=== PATIENT | female | born 1970 | race African-American/Black ===

== ENCOUNTER 2021-06-28 21:39 | Emergency (ER) | payer OTHER ==
[2021-06-28 21:47] VITALS: BP 117/73; PULSE 74; TEMP 99.2; BMI 31.4
[2021-06-28 22:37] LABS: BASO % 0.6 % (0-2.0); EOS % 1.4 % (0-4.5); HEMATOCRIT 35.9 % (32.4-45.2); HEMOGLOBIN 12.4 GM/dL (10.7-15.3); MCH 32.6 pg (25.7-33.7); MCHC 34.4 g/dl (32.0-36.0); MEAN CELL VOLUME 94.7 fl (80-96); MEAN PLT VOLUME 7.6 fl (7.5-11.1); MONO % 8.9 % (3.8-10.2); NEUT % 33.1 % (42.8-82.8); PLATELET COUNT 281 10^3/uL (134-434); RDW 13.8 % (11.6-15.6); WHITE BLOOD COUNT 5.7 K/mm3 (4.0-10.0)
[2021-06-28 22:56] LABS: BLOOD UREA NITROGEN 9.8 mg/dL (7-18); CALCIUM 8.4 mg/dL (8.5-10.1)
[2021-06-28 22:57] LABS: ALBUMIN 3.4 g/dl (3.4-5.0); MAGNESIUM 2.1 mg/dL (1.8-2.4)
[2021-06-28 23:00] LABS: CREATININE 0.7 mg/dL (0.55-1.3); PHOSPHOROUS 4.6 mg/dL (2.5-4.9)
[2021-06-28 23:01] LABS: BILIRUBIN,TOTAL 0.3 mg/dL (0.2-1)
== END 2021-06-28 23:42 | disposition home or self-care (01) ==
LOC: JER 21:39
DX: M79.601 Pain in right arm (principal)
CPT/HCPCS: 36415; 73060-TC-RT-FY; 80053; 83735; 84100; 85025; 99284-25

== ENCOUNTER 2021-12-02 21:22 | Emergency (ER) | payer OTHER ==
[2021-12-02 21:49] VITALS: BP 113/86; PULSE 89; TEMP 100.3; BMI 29.7
[2021-12-02] MEDS ORDERED: ACETAMINOPHEN 500 MG TABLET (FP) PO ONE (22:40)
[2021-12-02] MEDS ORDERED: ACETAMINOPHEN 500 MG TABLET (FP) ONE ×2 (22:41→22:51)
[2021-12-04 11:07] LABS: SARS-CoV-2 NAA Detected (Not Detected)
== END 2021-12-03 08:58 | disposition home or self-care (01) ==
LOC: JER 21:22
DX: J02.9 Acute pharyngitis, unspecified (principal)
CPT/HCPCS: 87804; 99283-25; C9803; U0003; U0005

== ENCOUNTER 2021-12-16 15:07 | Emergency (ER) | payer OTHER ==
[2021-12-16 15:25] VITALS: BMI 32.9
[2021-12-16] MEDS ORDERED: ASPIRIN 81 MG CHEWABLE TABLETS PO ONE (15:47)
[2021-12-16] MEDS ORDERED: ASPIRIN 81 MG CHEWABLE TABLETS ONE (16:10)
[2021-12-16 16:49] LABS: BASO % 0.3 % (0-2.0); EOS % 0.9 % (0-4.5); HEMATOCRIT 42.7 % (32.4-45.2); HEMOGLOBIN 13.9 GM/dL (10.7-15.3); LYMPH % 35.7 % (8-40); MCH 31.6 pg (25.7-33.7); MCHC 32.6 g/dl (32.0-36.0); MEAN CELL VOLUME 96.8 fl (80-96); MEAN PLT VOLUME 8.1 fl (7.5-11.1); NEUT % 54.1 % (42.8-82.8); PLATELET COUNT 305 10^3/uL (134-434); RBC 4.41 M/mm3 (3.60-5.2); RDW 13.5 % (11.6-15.6); WHITE BLOOD COUNT 7.1 K/mm3 (4.0-10.0)
[2021-12-16 16:58] LABS: INR 1.11 (0.83-1.09); PROTHROMBIN TIME (PATIENT) 12.8 SEC (9.7-13.0)
[2021-12-16 17:01] LABS: ACTIVATED PTT 35.1 SECONDS (25.2-36.5)
[2021-12-16 17:12] LABS: CHLORIDE 104 mmol/L (98-107); SODIUM 138 mmol/L (136-145)
[2021-12-16 17:14] LABS: ANION GAP 7 MMOL/L (8-16); CALCIUM 9.1 mg/dL (8.5-10.1); CO2 28 mmol/L (21-32); GLUCOSE,RANDOM 82 mg/dL (74-106)
[2021-12-16 17:15] LABS: BLOOD UREA NITROGEN 10.9 mg/dL (7-18); MAGNESIUM 2.4 mg/dL (1.8-2.4)
[2021-12-16 17:18] LABS: CREATININE 0.8 mg/dL (0.55-1.3); SGOT/AST 24 U/L (15-37); SGPT/ALT 35 U/L (13-61)
[2021-12-16 17:19] LABS: BILIRUBIN,TOTAL 0.4 mg/dL (0.2-1); TOT PROT 7.9 g/dl (6.4-8.2)
[2021-12-16 17:20] LABS: ALK PHOS 65 U/L (45-117)
[2021-12-16 18:37] VITALS: BP 122/74; PULSE 82; TEMP 98.8
== END 2021-12-16 20:28 | disposition home or self-care (01) ==
LOC: JER 15:07
DX: R07.89 Other chest pain (principal)
CPT/HCPCS: 36415; 71046-TC-FY; 71275-TC; 80053; 82550; 83735; 84484; 85025; 85379; 85610; 85730; 93005; 93010; 99285-25; Q9967

== ENCOUNTER 2022-05-29 15:11 | Emergency (ER) | payer OTHER ==
[2022-05-29 15:22] VITALS: BP 104/70; PULSE 79; TEMP 97; BMI 33.0
[2022-05-29] MEDS ORDERED: LIDOCAINE 5% TOPICAL PATCH TP ONE (16:28)
[2022-05-29] MEDS ORDERED: LIDOCAINE 5% TOPICAL PATCH ONE (16:32)
[2022-05-29] MEDS ORDERED: KETOROLAC TROMETHAMINE 30 MG/1 ML VIAL IM ONE (16:33)
[2022-05-29] MEDS ORDERED: diazePAM 5 MG TABLET PO ONE (16:33)
[2022-05-29] MEDS ORDERED: KETOROLAC TROMETHAMINE 30 MG/1 ML VIAL ONE (16:34)
[2022-05-29] MEDS ORDERED: diazePAM 5 MG TABLET ONE (16:34)
[2022-05-29 16:39] LABS: EPI CELLS 14 /uL (0-25.1); HYALINE CASTS 0 /uL (0-3.1); PH,URINE 7.5 (5.0-8.0); URINE APPEARANCE CLEAR; URINE BACTERIA 7 /uL (0-1359); URINE BILIRUBIN NEGATIVE (NEGATIVE); URINE COLOR YELLOW; URINE GLUCOSE (UA) NEGATIVE (NEGATIVE); URINE KETONE NEGATIVE (NEGATIVE); URINE LEUK ESTERASE 1+ (NEGATIVE); URINE NITRITE NEGATIVE (NEGATIVE); URINE PROTEIN NEGATIVE (NEGATIVE); URINE UROBILINOGEN 0.2 mg/dL (0.2-1.0); URINE WBC 15 /uL (0-25.8)
[2022-05-29 17:48] LABS: URINE RBC 57.4 /uL (0-23.9)
[2022-05-29 17:49] LABS: YEAST NONE SEEN (NEGATIVE)
== END 2022-05-29 17:13 | disposition home or self-care (01) ==
LOC: JERFT 15:11
PROC: 3E023GC Introduction of Other Therapeutic Substance into Muscle, Percutaneous Approach (ICD-10-PCS; principal; 2022-05-29)
DX: M54.50 Low back pain, unspecified (principal)
CPT/HCPCS: 72100-TC-FY; 72131-TC; 81003; 99285-25

== ENCOUNTER 2023-01-22 20:44 | Emergency (ER) | payer OTHER ==
[2023-01-22 20:49] VITALS: BP 132/76; PULSE 78; RESP 18; TEMP 98.1; BMI 32.2
[2023-01-22] MEDS ORDERED: ACETAMINOPHEN 1000 MG/100 ML BAG IVPB ONE (21:17)
[2023-01-22] MEDS ORDERED: SODIUM CHLORIDE 0.9% 500 ML INFUS.BAG IV ONE (21:17)
[2023-01-22] MEDS ORDERED: ONDANSETRON 4 MG/2 ML VIAL IVPUSH ONE (21:20)
[2023-01-22] MEDS ORDERED: ACETAMINOPHEN INJECTION 100 ML IVPB ONE (21:27)
[2023-01-22] MEDS ORDERED: ONDANSETRON 4 MG/2 ML VIAL ONE (21:27)
[2023-01-22 21:41] LABS: BASO % 0.3 % (0-2.0); EOS % 0.9 % (0-4.5); HEMATOCRIT 40.2 % (32.4-45.2); HEMOGLOBIN 13.8 GM/dL (10.7-15.3); LYMPH % 42.5 % (8-40); MCH 32.7 pg (25.7-33.7); MCHC 34.3 g/dl (32.0-36.0); MEAN CELL VOLUME 95.6 fl (80-96); MEAN PLT VOLUME 7.8 fl (7.5-11.1); NEUT % 48.3 % (42.8-82.8); PLATELET COUNT 247 10^3/uL (134-434); RDW 14.4 % (11.6-15.6); WHITE BLOOD COUNT 6.3 K/mm3 (4.0-10.0)
[2023-01-22 22:01] LABS: CALCIUM 8.6 mg/dL (8.5-10.1)
[2023-01-22 22:02] LABS: ALBUMIN 3.6 g/dl (3.4-5.0); BLOOD UREA NITROGEN 9.8 mg/dL (7-18)
[2023-01-22 22:04] LABS: CREATININE 0.8 mg/dL (0.55-1.3)
[2023-01-22 22:06] LABS: BILIRUBIN,TOTAL 0.3 mg/dL (0.2-1); TOT PROT 7.6 g/dl (6.4-8.2)
[2023-01-22 22:27] LABS: EPI CELLS 7 /uL (0-25.1); HYALINE CASTS 1 /uL (0-3.1); URINE APPEARANCE CLEAR; URINE BACTERIA 10 /uL (0-1359); URINE BILIRUBIN NEGATIVE (NEGATIVE); URINE COLOR YELLOW; URINE GLUCOSE (UA) NEGATIVE (NEGATIVE); URINE KETONE NEGATIVE (NEGATIVE); URINE LEUK ESTERASE TRACE (NEGATIVE); URINE NITRITE NEGATIVE (NEGATIVE); URINE PROTEIN NEGATIVE (NEGATIVE); URINE RBC 9 /uL (0-23.9); URINE WBC 11 /uL (0-25.8)
== END 2023-01-23 00:29 | disposition home or self-care (01) ==
LOC: JER 20:44
PROC: 3E033GC Introduction of Other Therapeutic Substance into Peripheral Vein, Percutaneous Approach (ICD-10-PCS; principal; 2023-01-22)
DX: R10.30 Lower abdominal pain, unspecified (principal)
CPT/HCPCS: 0241U-QW; 36415; 74177-TC; 80053; 81003; 83690; 85025; 87086; 99285-25

== ENCOUNTER 2023-04-29 00:23 | Emergency (ER) | payer OTHER ==
[2023-04-29 00:32] VITALS: BP 119/82; PULSE 70; RESP 20; TEMP 99; BMI 31.8
[2023-04-29 01:31] LABS: BASO % 0.3 % (0-2.0); EOS % 0.9 % (0-4.5); HEMATOCRIT 40.1 % (32.4-45.2); HEMOGLOBIN 13.3 GM/dL (10.7-15.3); LYMPH % 37.7 % (8-40); MCH 31.8 pg (25.7-33.7); MCHC 33.2 g/dl (32.0-36.0); MEAN CELL VOLUME 95.7 fl (80-96); MEAN PLT VOLUME 8.3 fl (7.5-11.1); MONO % 8.3 % (3.8-10.2); NEUT % 52.8 % (42.8-82.8); PLATELET COUNT 231 10^3/uL (134-434); RBC 4.19 M/mm3 (3.60-5.2); RDW 14.7 % (11.6-15.6); WHITE BLOOD COUNT 6.5 K/mm3 (4.0-10.0)
[2023-04-29] MEDS ORDERED: LIDOCAINE 5% TOPICAL PATCH TP ONE (01:36)
[2023-04-29] MEDS ORDERED: KETOROLAC TROMETHAMINE 15 MG/ML VIAL IVPUSH ONE (01:36)
[2023-04-29 01:40] LABS: INR 1.07 (0.83-1.09); PROTHROMBIN TIME (PATIENT) 12.4 SEC (9.7-13.0)
[2023-04-29] MEDS ORDERED: LIDOCAINE 5% TOPICAL PATCH ONE (01:41)
[2023-04-29 01:42] LABS: ACTIVATED PTT 30.2 SECONDS (25.2-36.5)
[2023-04-29] MEDS ORDERED: KETOROLAC TROMETHAMINE 15 MG/ML VIAL ONE (01:42)
[2023-04-29 01:51] LABS: CHLORIDE 110 mmol/L (98-107); SODIUM 139 mmol/L (136-145)
[2023-04-29 01:52] LABS: CALCIUM 9.5 mg/dL (8.5-10.1)
[2023-04-29 01:53] LABS: ALBUMIN 3.7 g/dl (3.4-5.0); BLOOD UREA NITROGEN 16.8 mg/dL (7-18); CO2 25 mmol/L (21-32); GLUCOSE,RANDOM 82 mg/dL (74-106); MAGNESIUM 2.3 mg/dL (1.8-2.4)
[2023-04-29 01:56] LABS: SGOT/AST 50 U/L (15-37); SGPT/ALT 27 U/L (13-61)
[2023-04-29 01:58] LABS: BILIRUBIN,TOTAL 0.6 mg/dL (0.2-1); TOT PROT 7.8 g/dl (6.4-8.2)
[2023-04-29 01:59] LABS: ALK PHOS 62 U/L (45-117)
[2023-04-29 02:02] LABS: ANION GAP 4 MMOL/L (8-16); POTASSIUM 6.2 mmol/L (3.5-5.1)
[2023-04-29] MEDS ORDERED: LIDOCAINE PATCH REMOVAL MC ONE (14:00)
== END 2023-04-29 06:33 | disposition home or self-care (01) ==
LOC: JER 00:23
PROC: 3E0333Z Introduction of Anti-inflammatory into Peripheral Vein, Percutaneous Approach (ICD-10-PCS; principal; 2023-04-29)
DX: R09.1 Pleurisy (principal)
CPT/HCPCS: 36415; 71045-TC-FY; 80053; 83735; 84132; 84484; 85025; 85610; 85730; 93005; 93010; 99285-25